=== PATIENT | female | born 1980 | race Caucasian/White ===

== ENCOUNTER 2017-06-17 07:02 | Emergency (ER) | payer MEDICAID ==
[~2017-06-17] VITALS: Ht 157.5 cm; Wt 121.8 kg
[2017-06-17 07:10] VITALS: TEMP 98.4
[2017-06-17] MEDS ORDERED: ASPIRIN 81M81 MG/TA2 PO (07:15)
[2017-06-17] MEDS ORDERED: PRENATAL MVI (07:16)
[2017-06-17 08:57] VITALS: BP 129/75; PULSE 68
[2017-06-17] MEDS ORDERED: PHENERGAN 25 TA25 MG PO (09:44)
[2017-06-17 09:50] VITALS: BP 126/78; PULSE 75
== END 2017-06-17 09:51 | disposition home or self-care (01) ==
LOC: COL.ER 07:02
DX: O26.892 Other specified pregnancy related conditions, second trimester (principal); R10.13 Epigastric pain; Z3A.27 27 weeks gestation of pregnancy; Z87.891 Personal history of nicotine dependence; Z79.82 Long term (current) use of aspirin

== ENCOUNTER 2017-07-16 18:44 | Outpatient (CLI) | payer MEDICAID ==
[~2017-07-16] VITALS: Ht 162.6 cm; Wt 125.9 kg
[~2017-07-16 18:44] MED LIST: ASPIRIN 81M81 MG/TA2 PO; PHENERGAN 25 TA25 MG PO; PRENATAL MVI
[2017-07-16 19:09] VITALS: BP 125/60; PULSE 97; TEMP 98
[2017-07-16] MEDS ORDERED: TYLENOL 500MG500 MG PO (19:23)
[2017-07-16 19:30] VITALS: BP 117/57; PULSE 97; TEMP 98
[2017-07-16 20:00] VITALS: BP 116/59; PULSE 85
[2017-07-16 20:18] LABS: COLLECTION METHOD CLEAN CATCH
[2017-07-16 20:25] LABS: MUCOUS Present /lpf; PH 5 (5-8); SQUAMOUS EPITHELIAL 20-50 /hpf; URINE APPEARANCE Cloudy; URINE BACTERIA Occasional /hpf; URINE BILIRUBIN Negative (NEGATIVE); URINE BLOOD Negative (NEGATIVE); URINE COLOR Yellow; URINE GLUCOSE Negative (NEGATIVE); URINE KETONE Trace (NEGATIVE); URINE LEUKOCYTE ESTERASE 3+ (NEGATIVE); URINE NITRATE Negative (NEGATIVE); URINE PROTEIN(semi-quant) 1+ (NEGATIVE); URINE UROBILINOGEN Negative (NEGATIVE); URINE WBC 20-50 /hpf
[2017-07-16 20:30] VITALS: BP 96/55; PULSE 88
[2017-07-16 21:10] VITALS: BP 109/67; PULSE 85
== END 2017-07-16 21:45 | disposition home or self-care (01) ==
LOC: LDRO 18:44
PROVIDERS: Obstetrics & Gynecology
DX: O26.893 Other specified pregnancy related conditions, third trimester (principal); Z3A.29 29 weeks gestation of pregnancy

== ENCOUNTER 2017-09-20 05:47 | Inpatient (IN) | payer MEDICAID ==
[2017-09-20] VITALS (19 sets, daily range): BP systolic 108–144; BP diastolic 64–93; PULSE 62–82; TEMP 97.5–98.5
[~2017-09-20] VITALS: Ht 161.3 cm; Wt 128.2 kg
[~2017-09-20 05:47] MED LIST changes: +TYLENOL 500MG500 MG PO
[2017-09-20 07:01] LABS: BASO % 0.3 % (0.0-2.0); EOS # 0.1 (0.0-0.7); EOS % 1.1 % (0-4.0); GRAN # 8.5 (1.4-6.5); GRAN % 75.2 % (42.2-75.2); LYMPH % 17.8 % (20.0-51.0); MEAN CELL VOLUME 85 fl (80.0-100.0); MEAN CORPUSCULAR HGB CONC 33 g/dl (33.0-37.0); MEAN PLATELET VOLUME 9.7 fl (7.4-10.4); MONO # 0.6 (0.1-0.6); PLATELET COUNT 243 K/mm3 (130-400); RED BLOOD COUNT 3.41 M/mm3 (4.10-5.30); REDCELL DISTRIBUTION WIDTH-CV 14.6 % (11.5-14.5)
[2017-09-20 07:02] LABS: HEMATOCRIT 28.8 % (37.0-47.0); HEMOGLOBIN 9.6 g/dl (12.5-16.0); MEAN CORPUSCULAR HEMOGLOBIN 28 pg (27.0-31.0)
[2017-09-21 00:55] VITALS: BP 100/59; PULSE 67; TEMP 98.4
[2017-09-21 06:58] VITALS: BP 113/62; PULSE 64; TEMP 98
[2017-09-21 08:05] LABS: HEMATOCRIT 27.1 % (37.0-47.0); HEMOGLOBIN 8.8 g/dl (12.5-16.0)
[2017-09-21] MEDS ORDERED: PERCOCET 325 MG1 TA2 PO (11:12)
[2017-09-21] MEDS ORDERED: IBU600 MG PO (11:12)
[2017-09-21 20:40] VITALS: BP 126/71; PULSE 79; TEMP 98.1
[2017-09-22 08:00] VITALS: BP 134/69; PULSE 69; TEMP 98.2
== END 2017-09-22 12:15 | disposition home or self-care (01) | DRG 765 ==
LOC: OB 05:47
PROVIDERS: Obstetrics & Gynecology
PROC: 10D00Z1 Extraction of Products of Conception, Low, Open Approach (ICD-10-PCS; principal; 2017-09-20)
PROC: 0UB70ZZ Excision of Bilateral Fallopian Tubes, Open Approach (ICD-10-PCS; 2017-09-20)
DX: O34.211 Maternal care for low transverse scar from previous cesarean delivery (principal); O10.92 Unspecified pre-existing hypertension complicating childbirth; Z68.41 Body mass index [BMI] 40.0-44.9, adult; N85.8 Other specified noninflammatory disorders of uterus; O99.824 Streptococcus B carrier state complicating childbirth; Z40.09 Encounter for prophylactic removal of other organ; O99.214 Obesity complicating childbirth; E66.01 Morbid (severe) obesity due to excess calories; O99.02 Anemia complicating childbirth; D64.9 Anemia, unspecified; Z3A.39 39 weeks gestation of pregnancy; Z37.0 Single live birth
CPT/HCPCS: J0690; J1885; J2175; J2370; J2405; J2590; J3010; J7120

== ENCOUNTER 2017-09-25 13:45 | Emergency (ER) | payer MEDICAID ==
[~2017-09-25] VITALS: Ht 160 cm; Wt 124.1 kg
[~2017-09-25 13:45] MED LIST changes: +IBU600 MG PO; +PERCOCET 325 MG1 TA2 PO
[2017-09-25 13:48] VITALS: BP 152/98; PULSE 72; TEMP 98
== END 2017-09-25 15:38 | disposition left against medical advice (07) ==
LOC: COL.ER 13:45
DX: G89.18 Other acute postprocedural pain (principal)

== ENCOUNTER 2019-02-27 14:20 | Outpatient (RCR) | payer OTHER | END 2019-05-28 | disposition home or self-care (01) | LOC: WSOH | DX: S93.401A Sprain of unspecified ligament of right ankle, initial encounter (principal); E11.9 Type 2 diabetes mellitus without complications; I10 Essential (primary) hypertension; R42 Dizziness and giddiness; J45.909 Unspecified asthma, uncomplicated; Z98.890 Other specified postprocedural states; Z87.891 Personal history of nicotine dependence | CPT/HCPCS: 24774; L1810 ==

== ENCOUNTER 2020-05-05 11:48 | Day surgery (SDC) | payer MEDICAID ==
[~2020-05-05] VITALS: Ht 160 cm; Wt 137.3 kg
[2020-05-05] VITALS (10 sets, daily range): BP systolic 133–159; BP diastolic 87–99; PULSE 79–91; TEMP 98.3–98.8
[2020-05-05] MEDS ORDERED: PROZAC 20MG20 MG PO (12:57)
[2020-05-05] MEDS ORDERED: BUSPAR10 MG PO (12:57)
[2020-05-05] MEDS ORDERED: GLUCOPHAGE500 MG/TAB PO (12:58)
[2020-05-05] MEDS ORDERED: MOTRIN 600600 MG/TAB PO (17:09)
[2020-05-05] MEDS ORDERED: ZOFRAN ODT4 MG PO (17:09)
[2020-05-05] MEDS ORDERED: NORCO 325 MG-51 TAB PO (17:09)
--- NOTE | 2020-05-05 18:30 | NUR ---
Pt arrived on unit via stretcher escorted by PACU staff and . Assisted pt to the bathroom with assist x3 and without complications. Pt was able to void. Assisted pt back to bed. Oriented to room, bed and call light within reach. Plan of care for extended recovery and discharge criteria reviewed with pt and at the bedside.
--- NOTE | 2020-05-05 22:05 | NUR ---
Discharge instructions and follow up care reviewed with pt and at the bedside. Both verbalized an understanding, agreed with the plan and states no questions or concerns at this time. Paperwork reviewed and signed. Pt discharged off unit via wheelchair and escorted by staff and to private vehicle for transport home.
== END 2020-05-05 22:05 | disposition home or self-care (01) ==
LOC: SDCO 11:48 → EDSTATUS 12:30 → SDCO 14:00 → OB 18:30 → SDCO 22:05
DX: K66.0 Peritoneal adhesions (postprocedural) (postinfection) (principal); J45.909 Unspecified asthma, uncomplicated; K42.9 Umbilical hernia without obstruction or gangrene; E66.01 Morbid (severe) obesity due to excess calories; Z79.84 Long term (current) use of oral hypoglycemic drugs; Z88.0 Allergy status to penicillin; Z88.8 Allergy status to other drugs, medicaments and biological substances; Z87.891 Personal history of nicotine dependence; G89.29 Other chronic pain; F32.9 Major depressive disorder, single episode, unspecified; F41.9 Anxiety disorder, unspecified; E11.9 Type 2 diabetes mellitus without complications; D64.9 Anemia, unspecified
CPT/HCPCS: OP; J0330; J0690; J1100; J1885; J2405; J2704; J3010; J7030; J7120

== ENCOUNTER 2021-01-10 01:52 | Observation (INO) | payer MEDICAID ==
[2021-01-10] VITALS (9 sets, daily range): BP systolic 122–148; BP diastolic 40–76; PULSE 67–86; TEMP 97.5–98.8
[~2021-01-10] VITALS: Ht 157.5 cm; Wt 133.6 kg
[~2021-01-10 01:52] MED LIST changes: +BUSPAR10 MG PO; +GLUCOPHAGE500 MG/TAB PO; +MOTRIN 600600 MG/TAB PO; +NORCO 325 MG-51 TAB PO; +PROZAC 20MG20 MG PO; +ZOFRAN ODT4 MG PO
[2021-01-10 02:47] LABS: COLLECTION METHOD CLEAN CATCH
[2021-01-10 02:50] LABS: BASO % 0.3 % (0.0-2.0); EOS # 0.3 (0.0-0.7); GRAN # 6.9 (1.4-6.5); GRAN % 67.3 % (42.2-75.2); HEMOGLOBIN 11.2 g/dl (12.5-16.0); LYMPH # 2.5 (1.2-3.4); LYMPH % 24.6 % (20.0-51.0); MEAN CELL VOLUME 86 fl (80.0-100.0); MEAN CORPUSCULAR HEMOGLOBIN 28 pg (27.0-31.0); MEAN CORPUSCULAR HGB CONC 33 g/dl (33.0-37.0); MEAN PLATELET VOLUME 9.2 fl (7.4-10.4); MONO # 0.4 (0.1-0.6); MONO % 4.3 % (1.7-9.3); PLATELET COUNT 268 K/mm3 (130-400); RED BLOOD COUNT 4.01 M/mm3 (4.10-5.30); REDCELL DISTRIBUTION WIDTH-CV 13.8 % (11.5-14.5)
[2021-01-10 02:52] LABS: HEMATOCRIT 34.3 % (37.0-47.0)
[2021-01-10 02:53] LABS: PH 6 (5-8); SQUAMOUS EPITHELIAL 0-2 /hpf; URINE APPEARANCE Clear; URINE BACTERIA None Seen /hpf; URINE BILIRUBIN Negative (NEGATIVE); URINE BLOOD Negative (NEGATIVE); URINE COLOR Yellow; URINE GLUCOSE Negative (NEGATIVE); URINE KETONE Negative (NEGATIVE); URINE LEUKOCYTE ESTERASE Negative (NEGATIVE); URINE NITRATE Negative (NEGATIVE); URINE PROTEIN(semi-quant) Negative (NEGATIVE); URINE RBC 0-2 /hpf; URINE UROBILINOGEN Negative (NEGATIVE); URINE WBC 0-2 /hpf
[2021-01-10 03:06] LABS: ALANINE AMINOTRANSFERASE 28 U/L (4-34); ALBUMIN 3.9 gm/dL (3.5-5.0); ALKALINE PHOSPHATASE 102 U/L (50-136); ANION GAP 5 mmol/L (7-16); AST,SGOT 50 U/L (15-37); BILIRUBIN,TOTAL 0.2 mg/dL (0.0-1.0); BLOOD UREA NITROGEN 16 mg/dL (7-17); CALCIUM 8.6 mg/dL (8.4-10.2); CARBON DIOXIDE 27 mmol/L (22-30); CHLORIDE 107 mmol/L (98-107); CREATININE, serum 0.66 (0.52-1.25); GLUCOSE 133 mg/dL (74-106); LIPASE 75 U/L (23-300); POTASSIUM 3.7 mmol/L (3.4-5.0); SODIUM 139 mmol/L (137-145); TOTAL PROTEIN 7.8 gm/dL (6.4-8.2)
[2021-01-10 03:29] LABS: TROPONIN-I < 0.012 ng/mL (0.000-0.035)
[2021-01-10] MEDS ORDERED: VICTOZA6 MG/ML SQ (07:40)
[2021-01-10] MEDS ORDERED: PROAIR HFA0.09 MG/AC IH (07:40)
[2021-01-10] MEDS ORDERED: PRIL40 PO (07:44)
[2021-01-10] MEDS ORDERED: ANTIVERT 25MG25 MG PO (07:45)
[2021-01-10 16:35] LABS: HEMATOCRIT 34.1 % (37.0-47.0); HEMOGLOBIN 11.1 g/dl (12.5-16.0)
--- NOTE | 2021-01-10 19:19 | NUR ---
Patient has done well since arriving to the floor. She has requested tylenol 1x for pain. IV in the left AC was redressed. Patient has had no complaints other than abdomen pain. Report given.
[2021-01-11] VITALS (8 sets, daily range): BP systolic 133–156; BP diastolic 80–96; PULSE 64–77; TEMP 97.8–98
--- NOTE | 2021-01-11 05:22 | NUR ---
PT HAD UNEVENTFUL NIGHT, PT REPORTS PAIN 5/10 TO ABDOMEN DESCRIBES A DULL PAIN. PT HAS REMAINED NPO SINCE 0000. ALL MEDICATIONS ADMINISTERED ORDERED. PT EXPRESSES NO ADDITIONAL NEEDS AT THIS TIME. CALL LIGHT WITHIN REACH.
[2021-01-11 07:02] LABS: BASO % 0.3 % (0.0-2.0); EOS # 0.2 (0.0-0.7); EOS % 2.4 % (0-4.0); GRAN # 5.9 (1.4-6.5); GRAN % 68.2 % (42.2-75.2); HEMOGLOBIN 10.4 g/dl (12.5-16.0); LYMPH % 23.2 % (20.0-51.0); MEAN CELL VOLUME 87 fl (80.0-100.0); MEAN CORPUSCULAR HEMOGLOBIN 28 pg (27.0-31.0); MEAN CORPUSCULAR HGB CONC 32 g/dl (33.0-37.0); MEAN PLATELET VOLUME 9.6 fl (7.4-10.4); MONO # 0.5 (0.1-0.6); MONO % 5.4 % (1.7-9.3); PLATELET COUNT 229 K/mm3 (130-400); RED BLOOD COUNT 3.68 M/mm3 (4.10-5.30); REDCELL DISTRIBUTION WIDTH-CV 14.1 % (11.5-14.5)
[2021-01-11 07:10] LABS: CALCIUM 7.9 mg/dL (8.4-10.2); CREATININE, serum 0.61 (0.52-1.25); HEMATOCRIT 32.1 % (37.0-47.0); POTASSIUM 4.1 mmol/L (3.4-5.0)
--- NOTE | 2021-01-11 10:12 | NUR ---
LATOYA met with the patient to discuss discharge plan. The patient lives in [place] with her , Leobardo (ph#[phone]), and their children. She reports independence with ADLs and does not have any DME. The patient's primary care provider is Lita Zamarripa APRN at [facility] in [place] and she also receives her medications from the pharmacy in [facility]. She states that they assist her with affordable meds. The patient does not have a DPOA-HC and she was not interested in completing one at this time. The patient plans to return home with her family upon discharge. No additional needs at this time. *Discharge plan: home with family*
--- NOTE | 2021-01-11 11:21 | NUR ---
Scheduled medications given, shift assessment complete. HIDA scan completed. Patient denies any pain, discomfort, N/V/D, or needs at this time. VSS. Call light in reach.
--- NOTE | 2021-01-11 17:01 | NUR ---
PATIENT DOWN FOR PROCEDURE.
--- NOTE | 2021-01-11 19:11 | NUR ---
PT ARRIVED TO MEDICAL FLOOR AT 1905 VIA BED, VSS, 02 2L NC, 4 BANDAIDS ON ABDOMEN C/D/I, PT DROWSY AND ABLE TO RESPOND TO NAME. PT CURRENTLY PRESENTS WITH MILD N/V. NURSE WILL CONTINUE TO MONITOR. P
[2021-01-12 00:19] VITALS: BP 141/86; PULSE 72; TEMP 98.8
--- NOTE | 2021-01-12 05:34 | NUR ---
PT'S 4 INCISIONS C/D/I COVERED WITH 4 BANDAIDS, PT REPORTS MODERATE PAIN CURRENTLY. PT HAD BM OVERNIGHT. PT WAS ABLE TO AMBULATE OVER 50 FEET. DIET IS ADVANCING AND PT IS TOLERATING WELL. PT DENIES V,D AND REPORTS MILD NAUSEA. D5 1/2 NS INFUSING AT 75ML VIA RIGHT HAND IV. PT EXPRESSES NO ADDITIONAL NEEDS AT THIS TIME. CALL LIGHT WITHIN REACH.
[2021-01-12 05:35] VITALS: BP 127/70; PULSE 74; TEMP 98.2
[2021-01-12 07:35] VITALS: BP 114/62; PULSE 75; TEMP 98.4
[2021-01-12 07:47] LABS: BASO % 0.2 % (0.0-2.0); EOS # 0.2 (0.0-0.7); GRAN # 7.9 (1.4-6.5); GRAN % 75.5 % (42.2-75.2); LYMPH # 1.8 (1.2-3.4); LYMPH % 17.2 % (20.0-51.0); MEAN CELL VOLUME 89 fl (80.0-100.0); MEAN CORPUSCULAR HGB CONC 32 g/dl (33.0-37.0); MEAN PLATELET VOLUME 9.1 fl (7.4-10.4); MONO # 0.5 (0.1-0.6); MONO % 4.6 % (1.7-9.3); PLATELET COUNT 229 K/mm3 (130-400); RED BLOOD COUNT 3.49 M/mm3 (4.10-5.30); REDCELL DISTRIBUTION WIDTH-CV 14.2 % (11.5-14.5)
[2021-01-12 07:59] LABS: HEMATOCRIT 30.9 % (37.0-47.0); HEMOGLOBIN 9.8 g/dl (12.5-16.0); MEAN CORPUSCULAR HEMOGLOBIN 28 pg (27.0-31.0)
[2021-01-12 08:01] LABS: CALCIUM 7.7 mg/dL (8.4-10.2); CREATININE, serum 0.67 (0.52-1.25); POTASSIUM 3.6 mmol/L (3.4-5.0)
--- NOTE | 2021-01-12 08:11 | NUR ---
Scheduled medication given. Shift assessment preformed. Patient C/O 10/24 abdominal "soreness". Patient states that it is at a manageable level at this time. Lap Choley sites clean, dry, and intact. VSS. Patient up and walking in the hallway with no complications. Call light in reach.
[2021-01-12] MEDS ORDERED: PERCOCET 325 MG1 TA2 PO (09:21)
[2021-01-12] MEDS ORDERED: BIAXIN 500MG T500 MG PO ×2 (11:35)
[2021-01-12] MEDS ORDERED: FLAGYL500 MG PO ×2 (11:38)
[2021-01-12] MEDS ORDERED: PROTONIX 40MG T40 MG PO ×2 (11:41)
[2021-01-12 12:14] VITALS: BP 119/66; PULSE 69; TEMP 98.4
--- NOTE | 2021-01-12 16:00 | NUR ---
PRN Oxycodone given as ordered for abdominal discomfort rated a 6/10. Patient deemed fit for discharge. IV DC'd catheter intact, no signs of phlebitis. Discharge instruction/education given. Work note obtained. Patient requested that her prescriptions be sent to [facility] pharmacy, MALENA Cruz notified. Patient denies any questions, concerns, or further needs. Patient escorted from building by [facility] Staff via wheelchair.
--- NOTE | 2021-01-13 11:14 | NUR ---
First visit from the analytics analyst. No needs
== END 2021-01-12 16:00 | disposition home or self-care (01) ==
LOC: COL.ER 01:52 → MEDICAL 07:43
PROVIDERS: Emergency Medicine; Physician Assistant; ADMIT Student in an Organized Health Care Education/Training Program
DX: K80.12 Calculus of gallbladder with acute and chronic cholecystitis without obstruction (principal); K29.30 Chronic superficial gastritis without bleeding; K29.80 Duodenitis without bleeding; K92.0 Hematemesis; B96.81 Helicobacter pylori [H. pylori] as the cause of diseases classified elsewhere; R10.13 Epigastric pain; D64.9 Anemia, unspecified; R31.0 Gross hematuria; J45.909 Unspecified asthma, uncomplicated; G89.29 Other chronic pain; I10 Essential (primary) hypertension; E66.9 Obesity, unspecified; E11.9 Type 2 diabetes mellitus without complications; F32.9 Major depressive disorder, single episode, unspecified; F17.210 Nicotine dependence, cigarettes, uncomplicated; F19.90 Other psychoactive substance use, unspecified, uncomplicated; F41.9 Anxiety disorder, unspecified; Z87.11 Personal history of peptic ulcer disease; Z79.84 Long term (current) use of oral hypoglycemic drugs; Z79.899 Other long term (current) drug therapy
CPT/HCPCS: OP; 99233-AI; A9537; C9113; G0378; J0330; J0690; J0696; J2405; J2550; J2704; J3010; J7030

== ENCOUNTER 2021-03-25 23:22 | Emergency (ER) | payer MEDICAID ==
[~2021-03-25] VITALS: Ht 157.5 cm; Wt 130.0 kg
[~2021-03-25 23:22] MED LIST changes: +ANTIVERT 25MG25 MG PO; +BIAXIN 500MG T500 MG PO; +FLAGYL500 MG PO; +PRIL40 PO; +PROAIR HFA0.09 MG/AC IH; +PROTONIX 40MG T40 MG PO; +VICTOZA6 MG/ML SQ
[2021-03-26] MEDS ORDERED: CLEOCIN HCL300 MG PO (00:08)
[2021-03-26] MEDS ORDERED: NORCO 325 MG-51 TAB PO ×2 (00:09→14:13)
[2021-03-26 00:21] VITALS: BP 145/94; PULSE 81; TEMP 98.2
== END 2021-03-26 00:21 | disposition home or self-care (01) ==
LOC: COL.ER 23:22
DX: K04.7 Periapical abscess without sinus (principal); K92.0 Hematemesis; K29.81 Duodenitis with bleeding; Z88.0 Allergy status to penicillin

== ENCOUNTER 2021-05-18 19:18 | Emergency (ER) | payer MEDICAID ==
[~2021-05-18] VITALS: Ht 157.5 cm; Wt 118.2 kg
[~2021-05-18 19:18] MED LIST changes: +CLEOCIN HCL300 MG PO
[2021-05-18 19:39] VITALS: TEMP 98.5
[2021-05-18 20:25] LABS: BASO # 0.1 K/mm3 (0.0-0.2); BASO % 0.5 % (0.0-2.0); EOS # 0.3 K/mm3 (0.0-0.7); EOS % 3.1 % (0-4.0); GRAN # 6.9 K/mm3 (1.4-6.5); GRAN % 65.2 % (42.2-75.2); HEMOGLOBIN 11.3 g/dl (12.5-16.0); LYMPH # 2.7 K/mm3 (1.2-3.4); LYMPH % 25.8 % (20.0-51.0); MEAN CELL VOLUME 83 fl (80.0-100.0); MEAN CORPUSCULAR HEMOGLOBIN 28 pg (27.0-31.0); MEAN CORPUSCULAR HGB CONC 34 g/dl (33.0-37.0); MEAN PLATELET VOLUME 9.6 fl (7.4-10.4); MONO # 0.5 K/mm3 (0.1-0.6); PLATELET COUNT 239 K/mm3 (130-400); RED BLOOD COUNT 4.05 M/mm3 (4.10-5.30); REDCELL DISTRIBUTION WIDTH-CV 14.1 % (11.5-14.5)
[2021-05-18 20:26] LABS: HEMATOCRIT 33.5 % (37.0-47.0)
[2021-05-18 20:39] LABS: ALANINE AMINOTRANSFERASE 41 U/L (0-55); ALBUMIN 3.5 gm/dL (3.5-5.0); ALKALINE PHOSPHATASE 92 U/L (40-150); ANION GAP 11 mmol/L (7-16); AST,SGOT 56 U/L (5-34); BILIRUBIN,TOTAL 0.3 mg/dL (0.2-1.2); BLOOD UREA NITROGEN 12 mg/dL (7-19); CALCIUM 9.1 mg/dL (8.4-10.2); CARBON DIOXIDE 23 mmol/L (22-29); CHLORIDE 106 mmol/L (98-107); CREATININE, serum 0.79 mg/dL (0.57-1.11); GLUCOSE 97 mg/dL (70-99); POTASSIUM 3.9 mmol/L (3.5-4.5); SODIUM 140 mmol/L (136-145)
[2021-05-18 20:50] LABS: TROPONIN-I < 0.010 ng/mL (0.00-0.033)
[2021-05-18 21:59] VITALS: BP 168/102; PULSE 78
== END 2021-05-18 21:59 | disposition home or self-care (01) ==
LOC: COL.ER 19:18
PROVIDERS: Student in an Organized Health Care Education/Training Program
DX: R07.89 Other chest pain (principal); K04.7 Periapical abscess without sinus; R10.13 Epigastric pain; K92.2 Gastrointestinal hemorrhage, unspecified; K29.81 Duodenitis with bleeding; E11.9 Type 2 diabetes mellitus without complications; I10 Essential (primary) hypertension; E66.9 Obesity, unspecified; Z79.899 Other long term (current) drug therapy; Z79.84 Long term (current) use of oral hypoglycemic drugs

== ENCOUNTER 2021-09-07 14:10 | Emergency (ER) | payer MEDICAID ==
[~2021-09-07] VITALS: Ht 154.9 cm; Wt 131.8 kg
[2021-09-07 14:32] VITALS: BP 124/86; PULSE 79; TEMP 98.6
== END 2021-09-07 15:48 | disposition left against medical advice (07) ==
LOC: COL.ER 14:10
DX: R11.10 Vomiting, unspecified (principal); R19.7 Diarrhea, unspecified; R10.13 Epigastric pain

== ENCOUNTER 2022-01-09 04:19 | Emergency (ER) | payer MEDICAID ==
[~2022-01-09] VITALS: Ht 160 cm; Wt 121.8 kg
[2022-01-09 04:23] VITALS: TEMP 97.4
[2022-01-09] MEDS ORDERED: ROBAXIN 75750 MG/TAB PO (05:14)
[2022-01-09] MEDS ORDERED: NORCO 325 MG-51 TAB PO (05:14)
[2022-01-09 05:38] VITALS: BP 148/91; PULSE 60
[2022-01-09] MEDS ORDERED: PERCOCET 325 MG1 TA2 PO ×2 (15:11)
== END 2022-01-09 05:38 | disposition home or self-care (01) ==
LOC: COL.ER 04:19
DX: M79.604 Pain in right leg (principal); X58.XXXA Exposure to other specified factors, initial encounter; Y93.01 Activity, walking, marching and hiking

== ENCOUNTER 2022-01-29 02:15 | Emergency (ER) | payer MEDICAID ==
[~2022-01-29] VITALS: Ht 157.5 cm; Wt 126.4 kg
[~2022-01-29 02:15] MED LIST changes: +ROBAXIN 75750 MG/TAB PO
[2022-01-29 02:20] VITALS: TEMP 97.6
[2022-01-29 02:49] LABS: BASO % 0.5 % (0.0-2.0); EOS # 0.3 K/mm3 (0.0-0.7); EOS % 3.7 % (0.0-4.0); GRAN # 5.1 K/mm3 (1.4-6.5); HEMOGLOBIN 11.7 g/dl (12.5-16.0); LYMPH # 2.8 K/mm3 (1.2-3.4); MEAN CELL VOLUME 84 fl (80.0-100.0); MEAN CORPUSCULAR HEMOGLOBIN 27 pg (27-31); MEAN CORPUSCULAR HGB CONC 32 g/dl (33.0-37.0); MEAN PLATELET VOLUME 10.3 fl (7.4-10.4); MONO # 0.5 K/mm3 (0.1-0.6); MONO % 5.3 % (1.7-9.3); PLATELET COUNT 110 K/mm3 (130-400); RED BLOOD COUNT 4.29 M/mm3 (4.10-5.30); REDCELL DISTRIBUTION WIDTH-CV 14.2 % (11.5-14.5)
[2022-01-29 03:05] LABS: HEMATOCRIT 36.2 % (37.0-47.0)
[2022-01-29 03:10] LABS: ALBUMIN 3.1 gm/dL (3.5-5.0); CALCIUM 8.7 mg/dL (8.4-10.2); CREATININE, serum 0.77 mg/dL (0.57-1.11); PHOSPHOROUS 3.2 mg/dL (2.3-4.7); POTASSIUM 4.1 mmol/L (3.5-4.5)
[2022-01-29 03:18] LABS: TROPONIN-I 0.011 ng/mL (0.00-0.033)
[2022-01-29 04:02] LABS: COLLECTION METHOD CLEAN CATCH
[2022-01-29 04:24] LABS: MUCOUS Present (NOT PRESENT); URINE BACTERIA Rare /hpf (NONE SEEN)
[2022-01-29 04:26] LABS: URINE APPEARANCE Clear (CLEAR/HAZY); URINE COLOR Yellow (YELLOW)
[2022-01-29 04:27] LABS: URINE BLOOD Negative (NEGATIVE); URINE GLUCOSE Negative (NEGATIVE); URINE KETONE Negative (NEGATIVE); URINE NITRATE Negative (NEGATIVE); URINE PROTEIN(semi-quant) Negative (NEGATIVE); URINE UROBILINOGEN 0.2 E.U/dL (0.2-1.0)
[2022-01-29 06:23] VITALS: BP 130/94; PULSE 62
== END 2022-01-29 06:23 | disposition home or self-care (01) ==
LOC: COL.ER 02:15
PROVIDERS: Emergency Medicine
DX: R07.1 Chest pain on breathing (principal); R91.1 Solitary pulmonary nodule
CPT/HCPCS: J1885; J2920; J7030; Q9967

== ENCOUNTER → 2022-02-12 | Outpatient (CLI) | payer MEDICAID | LOC: COL.RAD 13:51 | DX: N28.1 Cyst of kidney, acquired (principal) ==

== ENCOUNTER 2023-04-12 16:58 | Emergency (ER) | payer MEDICAID ==
[~2023-04-12] VITALS: Ht 157.5 cm; Wt 135.5 kg
[~2023-04-12 16:58] MED LIST changes: +CEFTIN500 MG PO
[2023-04-12 17:24] VITALS: TEMP 98.6
[2023-04-12 20:03] LABS: BASO # 0.1 K/mm3 (0.0-0.2); BASO % 0.4 % (0.0-2.0); EOS # 0.2 K/mm3 (0.0-0.7); EOS % 1.2 % (0.0-4.0); GRAN # 12.5 K/mm3 (1.4-6.5); GRAN % 79.1 % (42.2-75.2); HEMOGLOBIN 11.8 g/dl (12.5-16.0); LYMPH # 2.3 K/mm3 (1.2-3.4); LYMPH % 14.6 % (20.0-51.0); MEAN CELL VOLUME 80 fl (80.0-100.0); MEAN CORPUSCULAR HEMOGLOBIN 26 pg (27-31); MEAN CORPUSCULAR HGB CONC 32 g/dl (33.0-37.0); MEAN PLATELET VOLUME 10.3 fl (7.4-10.4); MONO # 0.7 K/mm3 (0.1-0.6); MONO % 4.4 % (1.7-9.3); PLATELET COUNT 142 K/mm3 (130-400); RED BLOOD COUNT 4.58 M/mm3 (4.10-5.30); REDCELL DISTRIBUTION WIDTH-CV 14.6 % (11.5-14.5)
[2023-04-12 20:06] LABS: HEMATOCRIT 36.6 % (37.0-47.0)
[2023-04-12 20:20] LABS: ALBUMIN 3.6 gm/dL (3.5-5.0); BILIRUBIN,TOTAL 0.6 mg/dL (0.2-1.2); C-REACTIVE PROTEIN 7.18 mg/dL (0.00-0.50); CREATININE, serum 0.78 mg/dL (0.57-1.11); POTASSIUM 4.1 mmol/L (3.5-4.5); TOTAL PROTEIN 7.5 gm/dL (6.2-8.1)
[2023-04-12] MEDS ORDERED: FLAGYL500 MG PO (21:44)
[2023-04-12] MEDS ORDERED: NORCO 325 MG-51 TAB PO (21:44)
[2023-04-12] MEDS ORDERED: CIPRO 500MG TA500 MG PO (21:44)
[2023-04-12 22:03] VITALS: BP 142/105; PULSE 82
== END 2023-04-12 22:04 | disposition home or self-care (01) ==
LOC: COL.ER 16:58
PROVIDERS: Family Medicine
DX: K57.32 Diverticulitis of large intestine without perforation or abscess without bleeding (principal); Z90.49 Acquired absence of other specified parts of digestive tract; Z88.0 Allergy status to penicillin
CPT/HCPCS: J2270; J2405; J7120; Q9967

== ENCOUNTER → 2023-12-27 | Outpatient (CLI) | payer MEDICAID ==
[~2023-12-27] MED LIST changes: +CIPRO 500MG TA500 MG PO; +CRUTCHES MC
== END ==
LOC: COL.RAD 13:54
DX: R05.9 Cough, unspecified (principal)

== ENCOUNTER 2024-01-03 03:33 | Emergency (ER) | payer MEDICAID ==
[~2024-01-03] VITALS: Ht 154.9 cm; Wt 118.6 kg
[~2024-01-03 03:33] MED LIST changes: -CRUTCHES MC
[2024-01-03 04:12] VITALS: BP 170/107; TEMP 98.2
[2024-01-03] MEDS ORDERED: oxyCODONE/Acetaminophen 5-325 MG TAB PO ONE (05:15)
[2024-01-03] MEDS ORDERED: CRUTCHES MC (07:42)
[2024-01-03 07:56] VITALS: PULSE 75
== END 2024-01-03 07:56 | disposition home or self-care (01) ==
LOC: COL.ER 03:33
DX: S99.911A Unspecified injury of right ankle, initial encounter (principal); W10.9XXA Fall (on) (from) unspecified stairs and steps, initial encounter

== ENCOUNTER 2024-02-21 18:52 | Emergency (ER) | payer MEDICAID ==
[~2024-02-21] VITALS: Ht 157.5 cm; Wt 118.6 kg
[~2024-02-21 18:52] MED LIST changes: +CRUTCHES MC
[2024-02-21 18:56] VITALS: BP 183/110; TEMP 98.5
[2024-02-21 21:17] VITALS: PULSE 67
== END 2024-02-21 21:17 | disposition home or self-care (01) ==
LOC: COL.ER 18:52
DX: S30.1XXA Contusion of abdominal wall, initial encounter (principal); W20.8XXA Other cause of strike by thrown, projected or falling object, initial encounter

== ENCOUNTER 2024-03-22 19:25 | Emergency (ER) | payer MEDICAID ==
[~2024-03-22] VITALS: Ht 157.5 cm; Wt 122.7 kg
[2024-03-22 19:28] VITALS: TEMP 99
[2024-03-22] MEDS ORDERED: NS 1,000 ML IV ONE (19:45)
[2024-03-22] MEDS ORDERED: fentaNYL 50 MCG/ML 2 ML VIAL IV ONE (19:45)
[2024-03-22 19:59] LABS: BASO % 0.1 % (0.0-2.0); EOS # 0.7 K/mm3 (0.0-0.7); GRAN # 10.7 K/mm3 (1.4-6.5); GRAN % 75.7 % (42.2-75.2); LYMPH # 2.1 K/mm3 (1.2-3.4); LYMPH % 14.7 % (20.0-51.0); MEAN CELL VOLUME 82 fl (80.0-100.0); MEAN CORPUSCULAR HEMOGLOBIN 27 pg (27-31); MEAN CORPUSCULAR HGB CONC 33 g/dl (33.0-37.0); MEAN PLATELET VOLUME 9.3 fl (7.4-10.4); MONO # 0.5 K/mm3 (0.1-0.6); MONO % 3.5 % (1.7-9.3); PLATELET COUNT 225 K/mm3 (130-400); RED BLOOD COUNT 3.74 M/mm3 (4.10-5.30); REDCELL DISTRIBUTION WIDTH-CV 14.9 % (11.5-14.5)
[2024-03-22 20:01] LABS: HEMATOCRIT 30.6 % (37.0-47.0)
[2024-03-22 20:18] LABS: ALBUMIN 3.1 g/dL (3.5-5.0); BILIRUBIN,TOTAL 0.3 mg/dL (0.2-1.2); C-REACTIVE PROTEIN 4.43 mg/dL (0.00-0.50); CALCIUM 8.7 mg/dL (8.4-10.2); CREATININE, serum 0.8 mg/dL (0.57-1.11); POTASSIUM 3.7 mEq/L (3.5-4.5); TOTAL PROTEIN 7.1 g/dl (6.2-8.1)
[2024-03-22 20:24] LABS: COLLECTION METHOD CLEAN CATCH
[2024-03-22] MEDS ORDERED: Ondansetron 4 MG/2 ML VIAL IV ONE (20:30)
[2024-03-22 20:33] LABS: PH 5.5 (5.0-8.5); URINE APPEARANCE CLOUDY (CLEAR/HAZY); URINE BLOOD 2+ (NEGATIVE); URINE COLOR YELLOW (YELLOW); URINE GLUCOSE NEGATIVE (NEGATIVE); URINE KETONE TRACE (NEGATIVE); URINE NITRATE NEGATIVE (NEGATIVE); URINE PROTEIN(semi-quant) TRACE (NEGATIVE)
[2024-03-22] MEDS ORDERED: Iohexol 300 - 100 ML VIAL IV ONE (20:35)
[2024-03-22] MEDS ORDERED: NS 50 ML IV SCH (20:35)
[2024-03-22] MEDS ORDERED: Ketorolac 30 MG/ML VIAL IV ONE (21:00)
[2024-03-22] MEDS ORDERED: Cephalexin 500 MG CAP PO ONE (21:15)
[2024-03-22] MEDS ORDERED: CEPHALEXIN500 M1 PO (22:26)
[2024-03-22 22:35] VITALS: BP 144/86; PULSE 69
== END 2024-03-22 22:35 | disposition home or self-care (01) ==
LOC: COL.ER 19:25
PROVIDERS: Emergency Medicine
DX: N99.840 Postprocedural hematoma of a genitourinary system organ or structure following a genitourinary system procedure (principal); N39.0 Urinary tract infection, site not specified; Z88.0 Allergy status to penicillin; Z90.710 Acquired absence of both cervix and uterus
CPT/HCPCS: J1885; J2405; J3010; J7030; Q9967

== ENCOUNTER 2024-03-31 06:58 | Emergency (ER) | payer MEDICAID ==
[~2024-03-31] VITALS: Ht 157.5 cm; Wt 122.3 kg
[~2024-03-31 06:58] MED LIST changes: +CEPHALEXIN500 M1 PO
[2024-03-31 07:04] VITALS: TEMP 98.5
[2024-03-31 08:04] LABS: PH 5.5 (5.0-8.5); URINE APPEARANCE CLEAR (CLEAR/HAZY); URINE BLOOD 2+ (NEGATIVE); URINE COLOR YELLOW (YELLOW); URINE GLUCOSE NEGATIVE (NEGATIVE); URINE KETONE NEGATIVE (NEGATIVE); URINE NITRATE NEGATIVE (NEGATIVE); URINE PROTEIN(semi-quant) 2+ (NEGATIVE); URINE UROBILINOGEN 0.2 E.U/dL (0.2-1.0)
[2024-03-31 08:12] LABS: SQUAMOUS EPITHELIAL 20-50 /hpf (0-10); URINE BACTERIA RARE /hpf (NONE SEEN); URINE WBC 0-2 /hpf (0-2)
[2024-03-31] MEDS ORDERED: PYRIDIUM200 M1 PO (08:28)
[2024-03-31] MEDS ORDERED: CIPRO 500MG TA500 MG PO (08:28)
[2024-03-31 08:36] VITALS: BP 150/93; PULSE 89
[2024-04-01 09:23] LABS: COLLECTION METHOD CATHETER
== END 2024-03-31 08:36 | disposition home or self-care (01) ==
LOC: COL.ER 06:58
PROVIDERS: Personal Emergency Response Attendant
DX: R30.0 Dysuria (principal)